=== PATIENT | female | born 1985 | race Caucasian/White ===

== ENCOUNTER → 2021-01-03 08:15 | Outpatient (CLI) | payer OTHER, SELFPAY ==
--- NOTE | ~2021-01-03 | CT_ITS ---
EXAMINATION: CT brain wo con DATE: 01/03/2021 08:41 INDICATION: Migraine headache without aura TECHNIQUE: Computed tomography (CT) of the head was performed without intravenous contrast. The mA wa s adjusted according to patient size. Iterative reconstruction technique was employed. Exam dose: 59 9.57 mGy-cm total exam DLP. COMPARISON: December 19, 2017 CT brain FINDINGS: Bilateral carotid siphon internal carotid artery calcifications are again noted. No intracranial mass lesion or hemorrhage or cerebrovascular accident is evident. No midline shift or mass effect. Normal ventricular size. Normal mahmood-white matter differentiation. No subdural or epidu ral hematoma. Orbital contents are unremarkable. No fracture or bone destruction of the cranial vault. There is a polyp or mucous retention cyst measuring approximately 15 mm dimension in the right maxill zoya sinus. Small anterior wall left maxillary sinus mucous retention cyst. Included paranasal sinuses and mastoid air cells are otherwise unremarkable. Prominent rightward deviation of the nasal septum and jared bullosa of the left middle nasal turbinate. IMPRESSION: Cerebral atherosclerosis Reviewed, dictated and finalized at [facility]. Reviewed, dictated and finalized at [facility]. [employer] [employer] IMPRESSION: Cerebral atherosclerosis
== END ==
PROVIDERS: PCP Family Medicine; Visit Provider Family Medicine
DX: G43.009 Migraine without aura, not intractable, without status migrainosus (principal); I67.2 Cerebral atherosclerosis
CPT/HCPCS: 70450

== ENCOUNTER → 2021-08-18 15:42 | Outpatient (CLI) | payer OTHER, SELFPAY ==
--- NOTE | ~2021-08-18 | CT_ITS ---
EXAMINATION: CT sinus wo con DATE: 08/18/2021 15:54 INDICATION: Chronic sinusitis TECHNIQUE: Computed tomography (CT) of the paranasal sinuses was performed without contrast. Iterativ e reconstruction technique was employed. Exam dose: 274.70 mGy-cm total exam DLP. COMPARISON: January 03, 2021 CT brain FINDINGS: There is prominent rightward deviation of the nasal septum. There is very prominent interlamellar cell of the left middle nasal turbinate and asymmetric soft tis mushtaq swelling of the left middle and inferior nasal turbinates compared to their counterparts on the r ight. There is mild soft tissue thickening of the left maxillary ostium and the left infundibulum. The left ethmoid bulla is opacified. The right ostiomeatal unit is patent. There is a chronic anterior right maxillary polyp or mucous retention cyst measuring up to approximat abigail 1.3 cm, unchanged since January 03, 2021. There is mild focal periosteal thickening of the left maxillary sinus and a small left maxillary sinu s fluid level. There is partial opacification of some anterior and mid left ethmoid air cells. There is moderate mucoperiosteal thickening of the left frontal sinus. There is mild mucoperiosteal thickening of the left sphenoid sinus. The mastoid air cells are normally developed and aerated. Middle and inner ear apparatus appear ruben l bilaterally. IMPRESSION: Prominent rightward deviation of nasal septum Prominent interlamellar cell of left middle nasal turbinate Asymmetric soft tissue swelling of left middle and inferior nasal turbinates Mild soft tissue thickening of left maxillary ostium and infundibulum Patent right ostiomeatal units Moderate mucoperiosteal thickening of left frontal sinus, mild soft tissue thickening of left sphenoi d sinus Approximately 1.3 cm polyp or mucous retention cyst of anterior right maxillary sinus, stable since F ebrubighorn 2020 Mild mucoperiosteal thickening and small fluid level of left maxillary sinus Partial opacification of left ethmoid air cells Reviewed, dictated and finalized at [facility]. Reviewed, dictated and finalized at [facility]. IMPRESSION: Prominent rightward deviation of nasal septum Prominent interlamellar cell of left middle nasal turbinate Asymmetric soft tissue swelling of left middle and inferior nasal turbinates Mild soft tissue thickening of left maxillary ostium and infundibulum Patent right ostiomeatal units Moderate mucoperiosteal thickening of left frontal sinus, mild soft tissue thic kening of left sphenoid sinus Approximately 1.3 cm polyp or mucous retention cyst of anterior right maxillary sinus, stable since January 03, 2021 Mild mucoperiosteal thickening and small fluid level of left maxillary sinus Partial opacification of left ethmoid air cells
== END ==
PROVIDERS: Visit Provider Otolaryngology
DX: J32.9 Chronic sinusitis, unspecified (principal); J34.2 Deviated nasal septum
CPT/HCPCS: 70486

== ENCOUNTER 2021-08-31 09:48 | Emergency (ER) | payer OTHER, SELFPAY ==
[2021-08-31 09:57] VITALS: BP 147/91; PULSE 71; RESP 16; TEMP 36.7; O2SAT 100
--- NOTE | 2021-08-31 11:13 | ED.GENADULT ---
HPI - General Adult General Chief complaint: Skin/Abscess/Foreign Body Stated complaint: rash Source: patient Mode of arrival: ambulatory Limitations: no limitations History of Present Illness HPI narrative: Patient is a 36-year-old female who presents to the [facility] via POV for evaluation of a rash that has been present for 1 day. Additionally, she reports rash to be located on hands, feet, and oral cavity. She states this rash is erythematous, blisterlike and sore . She also reports a different rash located on bilateral upper arms. This rash is pruritic and erythematous. Denies taking OTC meds for symptoms. Nothing improves or worsen symptoms. Patient does report exposure to pryb-livo-byl-mouth. 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 She is not vaccinated against Covid. Related Data Home Medications Medication Instructions Recorded Confirmed aspirin 81 mg tablet,delayed 81 mg PO DAILY 03/09/21 08/10/21 release loratadine 10 mg tablet 10 mg PO DAILY 03/09/21 08/10/21 Allergies Allergy/AdvReac Type Severity Reaction Status Date / Time iodine Allergy Unknown Unknown Verified 08/31/21 10:28 morphine Allergy Unknown Nausea and Verified 08/31/21 10:28 Vomiting shellfish derived Allergy Unknown Nausea and Verified 08/31/21 10:28 Vomiting SHELLFISH Allergy Severe SOB, Uncoded 08/31/21 10:28 SEVERE ITCHEY RASH Review of Systems Review of Systems: Denies recent/new changes in soaps, perfumes, lotions, detergents, and shampoos. Denies working with chemicals. Denies new or changes in medications/foods. Pertinent negatives fever, chills, sweats, change in appetite, malaise, poor p.o. intake, recent weight loss, change in appetite, myalgias, lymphadenopathy, LOC, dizziness, burning sensation, petechiae, swelling, streaking, warmth, lesions, easy bruising, lip/tongue/throat swelling, facial swelling, abdominal pain, nausea, vomiting, numbness, tingling, loss of sensation, cough, wheezing, chest pain, and heart palpitations/murmurs. PMFSH Past Medical History Medical History Anxiety disorder, unspecified BMI 36.0-36.9,adult BMI 37.0-37.9, adult BMI 38.0-38.9,adult BMI 39.0-39.9,adult Dysthymia Head ache Irritable bowel syndrome with diarrhea PMDD (premenstrual dysphoric disorder) Sleep apnea Vitamin D deficiency Surgical History Surgical History History of surgery Leg x4 Family History Family History Mother Diabetes mellitus Father No problems noted. 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 There is no relevant family history pertinent to the presenting complaint. Exam Narrative: GENERAL: Well-appearing, well-nourished, and in no acute distress. HEAD: Normocephalic, atraumatic. No facial swelling appreciated. EYES: PERRLA and EOMI. No evidence of erythema, swelling, or drainage. ENT: Nares clear, no rhinorrhea or epistaxis.Mucous membranes moist and pink. Uvula is midline without erythema and swelling. No evidence of obstruction, petechial rash, cobblestoning, lesions, swelling, exudates, peritonsillar abscess, tenting, or drooling. Breath odor and voice normal. NECK: Supple. No Lymphadenopathy or nuchal rigidity appreciated. CHEST: Bilateral lung grant are clear to auscultation. No respiratory distress.
== END 2021-08-31 11:37 | disposition home or self-care (01) ==
PROVIDERS: Emergency Provider Nurse Practitioner Family; PCP Family Medicine
DX: B08.4 Enteroviral vesicular stomatitis with exanthem (principal); L25.9 Unspecified contact dermatitis, unspecified cause; G47.30 Sleep apnea, unspecified; E55.9 Vitamin D deficiency, unspecified; Z79.82 Long term (current) use of aspirin
CPT/HCPCS: 99211; G0463

== ENCOUNTER 2021-09-22 07:59 | Outpatient (CLI) | payer OTHER, SELFPAY ==
--- NOTE | 2021-09-22 08:00 | ECG_ITS ---
Measurements Intervals [place] Rate: 65 P: 45 NM: 164 QRS: 17 QRSD: 101 T: 63 QT: 370 QTc: 386 Interpretive Statements SINUS RHYTHM DELAYED PRECORDIAL R/S TRANSITION BORDERLINE ECG Electronically Signed On 09-22-2021 8:57:47 CHURCH ORGANIST by Tank Gillis D.O.
[2021-09-22 09:35] LABS: Anion Gap 9 mmol/L (8-16); Blood Urea Nitrogen 17 mg/dL (7-17); Calcium 8.9 mg/dL (8.4-10.2); Carbon Dioxide 23 mmol/L (22-30); Chloride 107 mmol/L (98-107); Estimated Glomerular Filt Rate > 60; Glucose 85 mg/dL (65-110); Potassium 4.1 mmol/L (3.4-5.0); Sodium 139 mmol/L (137-145)
== END 2021-09-22 08:00 | disposition home or self-care (01) ==
PROVIDERS: Anesthesiology; PCP Family Medicine; Visit Provider Otolaryngology
DX: Z01.818 Encounter for other preprocedural examination (principal); I10 Essential (primary) hypertension
CPT/HCPCS: 36415; 80048; 93005

== ENCOUNTER 2021-09-23 00:47 | Day surgery (SDC) | payer OTHER, SELFPAY ==
[2021-09-20 16:05] VITALS: BMI 41.4
--- NOTE | 2021-09-20 16:09 | PC.NURSE ---
Report to the Outpatient Waiting Room, entrance under the green pavilion located off [facility], at time ___0800____ on date 09/23/21 . OR Time: ___1000 . - You and your visitor will be asked a series of questions to screen for COVID 19 for your protection. - A mask is required within the hospital. - Only one visitor is allowed at this time. Patient visitors will be guided where to wait when not with patient. Preoperative COVID Testing Requirements: No COVID Test needed if: (proof is required; if not received patient will have Rapid Test prior to entry) - Patient has received COVID Vaccine at least 14 days prior to procedure date or - Patient has positive COVID test result within last 90 days of surgery date. COVID Test needed if above criteria is not met If not COVID vaccinated a COVID test must be conducted within 72 hours of surgery and patient is asked to isolate self from time of testing until procedure. You will go to the [employer] [facility] for your COVID testing. The [employer] [facility] is located at the corner of [address] [facility]. You will only be called if COVID results are positive and your surgeon may reschedule your elective surgery date. Patients may have clear liquids (water, carbonated beverages, clear teas, apple juice) until 3 hours prior to surgery with a maximum of 20 ounces. - No food from midnight until time of surgery - Infants may have breast milk until 4 hours before surgery, infant formula 6 hours prior to surgery. - Children will be allowed to drink immediately following surgery. If applicable, please bring a bottle or sippy cup to assist with drinking. Juice, water, soda, and popsicles are readily available. For infants on formula, please bring formula the day of surgery. Pacifiers are allowed. Take the following medications with a SIP of water the morning of surgery: ____ALPRAZOLAM NEEDED Medications to discontinue per physician IBUPROFEN [address] ARREGUIN REGARDING ASPIRIN Date to take last dose Please no make-up, nail telugu, hairspray, perfume, deodorant, or body powder the day of surgery. No jewelry (including any body piercings) or valuables the day of surgery, leave them at home. Please take a shower or bath the night before, or the morning of, surgery with an antibacterial soap. Wear comfortable, loose fitting clothing. Children are encouraged to wear pajamas. - Jewelry must be removed prior to entering the operating room. Rings and piercings that are not removed may be cut off. - The hospital will not accept responsibility for valuables. - Please leave all valuables, including medications, at home the day of surgery. If you are going home after surgery, a licensed lumber driver must drive you home. - NO public transportation without another adult. - We recommend that an adult stay with you for 24 hours following discharge. - We also recommend that you do not drive, make important decision, drink alcoholic beverages, or take any drugs that were not prescribed by your health care provider for at least 24 hours after your discharge time. For Pediatric surgeries, we recommend two adults accompany the child home (only one inside the building at this time). Follow any additional instructions given to you from your surgeon. Telephone instructions given to __ANIKA and asked if any additional questions and then verbalized understanding. Patient advised to call surgeon office or pre surgery nurse liaison [phone] if any additional questions.
--- NOTE | 2021-09-22 09:17 | PM.IMHP ---
H&P: HPI History of Present Illness Date/Time: 09/22/21 09:17 Chief Complaint: nasal obstruction nasal congestion septal deviation inferior turbinate hypertrophy postnasal drip facial pressure facial pain chronic sinusitis acute sinusitis jared bullosa Narrative: patient presents for planned surgical procedures. No change in symptoms no change in medical history. Review of Systems Constitutional: Constitutional: Denies fatigue, Denies fever(s) and Denies lethargy Eyes: Eyes: Denies blurry vision and Denies change in vision ENT: Reports as per HPI Cardiovascular: Cardiovascular: Denies chest pain Respiratory: Respiratory: Denies cough Endocrine: Endocrine: Denies fatigue Hematologic/Lymphatic: Hematologic/Lymphatic: Denies easy bleeding, Denies easy bruising and Denies lymphadenopathy Allergic/Immunologic: Allergic/Immunologic: Denies seasonal rhinorrhea PMFSH Past Medical History Medical History Anxiety disorder, unspecified BMI 36.0-36.9,adult BMI 37.0-37.9, adult BMI 38.0-38.9,adult BMI 39.0-39.9,adult BMI 40.0-44.9, adult Dysthymia Head ache Irritable bowel syndrome with diarrhea PMDD (premenstrual dysphoric disorder) Sleep apnea Vitamin D deficiency Surgical History Surgical History History of surgery Leg x4 Family History Family History Mother Diabetes mellitus Father No problems noted. 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 Gender identity (if verbalized by the patient): Female Spiritual care concerns: No Meds Home Medications and Allergies Home Medications Medication Instructions Recorded Confirmed Type aspirin 81 mg tablet,delayed 81 mg PO DAILY 03/09/21 09/20/21 History release fluticasone propionate 50 2 spray INTRANASAL BID #16 ml 03/09/21 09/20/21 Rx mcg/actuation nasal spray,suspension loratadine 10 mg tablet 10 mg PO DAILY 03/09/21 09/20/21 History alprazolam 0.5 mg tablet 0.5 mg PO BID PRN #30 tablet 04/06/21 09/20/21 Rx hydrochlorothiazide 12.5 mg tablet 12.5 mg PO DAILY #30 tablet 05/03/21 09/20/21 Rx bupropion HCl 300 mg 24 hr tablet, 300 mg PO QAM #30 tablet 05/30/21 09/20/21 Rx extended release escitalopram oxalate 10 mg tablet 10 mg PO DAILY #30 tablet 07/25/21 09/20/21 Rx zonisamide 100 mg capsule See Rx Instructions .ROUTE 07/25/21 09/07/21 Rx .COMPLEX #30 cap Allergies Allergy/AdvReac Type Severity Reaction Status Date / Time iodine Allergy Unknown Unknown Verified 09/20/21 15:41 morphine Allergy Unknown Nausea and Verified 09/20/21 15:41 Vomiting shellfish derived Allergy Unknown Nausea and Verified 09/20/21 15:41 Vomiting SHELLFISH Allergy Severe SOB, Uncoded 09/20/21 15:41 SEVERE ITCHEY RASH Exam Const: General: cooperative, healthy appearing, comfortable, well developed and alert HENMT: Head: normal to inspection, normocephalic and atraumatic Ears: hearing grossly normal bilaterally, external ears normal, TM's normal bilaterally and EAC's normal General nose exam: Normal external nose present, Normal nares present and Other nasal findings present ( Turbinate hypertrophy septal deviation) Face and sinus: normal facial exam Mouth: Yes Normal oral and palatal mucosa present, Yes lip normal, Yes tongue normal, Yes oropharynx normal and Yes moist mucous membranes Teeth and gingiva: dentition normal and gingiva normal Throat: posterior oropharynx normal, tonsils normal and uvula midline Eyes: General: appea
[2021-09-23] VITALS (15 sets, daily range): BP systolic 130–155; BP diastolic 72–92; PULSE 70–81; RESP 14–20; TEMP 36.2–36.5; O2SAT 94–100; BMI 42.5
--- NOTE | 2021-09-23 07:03 | WPDHPUPDATE1 ---
History and Physical Update Update Date/Time: 09/23/21 07:03 History and Physical has been reviewed, including an updated exam of the patient. There are NO changes in the patient's condition. Risks, benefits, and alternatives have been discussed and questions answered. Patient agrees to proceed with procedure.
[2021-09-23] MEDS: LACTATED RINGERS 1,000 ML 30 ML IV CONT ×3 (09:13→15:21)
[2021-09-23] MEDS: ACETAMINOPHEN 500 MG TABLET 1000 MG PO (09:15)
--- NOTE | 2021-09-23 09:36 | WPDANESEPP ---
Anes - Eval Pre Procedure Procedure: Operation Date: 09/23/21 10:30 Proposed Procedures p Endoscopic Septoplasty - Steven Najera MD s Image Guided Right Anterior Ethmoidectomy, Left Anterior And Posterior Ethmoidectomy, Bilateral Maxillary Antrostomy, Left Sphenoidotomy, Left Frontal Sinusotomy, Bilateral Inferior Turbinectomy, Excision Of Left Christine Bullosa - Steven Najera MD Date/Time: 09/23/21 09:36 Surgeon: Reinaldo Preop Diagnosis: Chronic sinusitis Pre Op Diagnosis: Chronic Sinusitis Patient Data Age: 36 Gender: F Height: 1.65 m Weight: 115.8 kg Last Vital Signs Temp 36.5 C 09/23/21 09:25 Pulse 77 09/23/21 09:25 Resp 14 09/23/21 09:25 BP 130/92 H 09/23/21 09:25 Pulse Ox 98 09/23/21 09:25 Allergies Allergy/AdvReac Type Severity Reaction Status Date / Time iodine Allergy Unknown Unknown Verified 09/23/21 09:29 morphine Allergy Unknown Nausea and Verified 09/23/21 09:29 Vomiting shellfish derived Allergy Unknown Nausea and Verified 09/23/21 09:29 Vomiting SHELLFISH Allergy Severe SOB, Uncoded 09/23/21 09:29 SEVERE ITCHEY RASH Home Medications Medication Instructions Recorded Confirmed Type aspirin 81 mg tablet,delayed 81 mg PO DAILY 03/09/21 09/20/21 History release fluticasone propionate 50 2 spray INTRANASAL BID #16 ml 03/09/21 09/20/21 Rx mcg/actuation nasal spray,suspension loratadine 10 mg tablet 10 mg PO DAILY 03/09/21 09/20/21 History alprazolam 0.5 mg tablet 0.5 mg PO BID PRN #30 tablet 04/06/21 09/20/21 Rx hydrochlorothiazide 12.5 mg tablet 12.5 mg PO DAILY #30 tablet 05/03/21 09/20/21 Rx bupropion HCl 300 mg 24 hr tablet, 300 mg PO QAM #30 tablet 05/30/21 09/20/21 Rx extended release escitalopram oxalate 10 mg tablet 10 mg PO DAILY #30 tablet 07/25/21 09/20/21 Rx zonisamide 100 mg capsule See Rx Instructions .ROUTE 07/25/21 09/07/21 Rx .COMPLEX #30 cap HCG: negative Patient hx anesthesia problems: none Family hx anesthesia problems: none Results Review: All pre-operative results and documents have been reviewed as part of the pre-operative evaluation. [facility] Past Medical History Medical History Anxiety disorder, unspecified BMI 36.0-36.9,adult BMI 37.0-37.9, adult BMI 38.0-38.9,adult BMI 39.0-39.9,adult BMI 40.0-44.9, adult Dysthymia Head ache Irritable bowel syndrome with diarrhea PMDD (premenstrual dysphoric disorder) Sleep apnea Vitamin D deficiency Surgical History Surgical History History of surgery Leg x4 Family History Family History Mother Diabetes mellitus Father No problems noted. 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
--- NOTE | 2021-09-23 09:43 | WPDANESEFPP ---
Anes - Eval Final PreProcedure Day of Procedure 09/23/21 09:43 Patient weight: morbidly obese Heart: regular rate and rhythm Lungs: clear to auscultation Airway: Mallampati scale class II Neurological: alert and oriented Last oral intake: >/= 8 hours ASA classification: III Emergent: no Anesthetic plan: proceed Anesthesia type and monitoring: general ETT and standard monitoring Results Review: All pre-operative results and documents have been reviewed as part of the pre-operative evaluation. Informed Consent: The patient's anesthetic plan and its attendant risks and benefits were discussed with the patient/family/POA. Questions were solicited and answers provided to the satisfaction of the patient/family/POA.
[2021-09-23] MEDS: ceFAZolin 2 GM/D5W 50 ML 2 GM/50 ML BAG IVPB (09:48)
[2021-09-23] MEDS: LIDO 1%/EPINEPHRINE 1:100,000 50 ML VIAL 10 ML INFILTRATE (10:12)
[2021-09-23] MEDS: OXYMETAZOLINE HCL 0.05% NAS 15 ML BTL (*BKC) 1 SPRAY NASAL (10:12)
--- NOTE | 2021-09-23 12:27 | W.PM.PROC2 ---
Procedure Note - Detailed Date of Procedure 09/23/21 Pre-op Diagnosis Chronic Sinusitis R ight, jared bullosa, nasal obstruction, septal deviation,, inferior turbinate hypertrophy, Post-op Diagnosis same Procedure Performed 1. Bilateral image guided endoscopic maxillary antrostomies 2. Bilateral image guided endoscopic anterior ethmoidectomies 3. Image guided endoscopic left posterior ethmoidectomy 5. Image guided endoscopic left-sided sphenoidotomy 6. Left-sided image guided endoscopic frontal sinusotomy 7. Left-sided image guided resection of jared bullosa 8. Endoscopic assisted septoplasty 9. Endoscopic bilateral inferior turbinate submucosal resection with outfracture. Surgeon Steven Najera MD Emergency Medicine None Indications See above Findings Septum very deviated to the right corrected turbinates hypertrophied well reduced following the procedure polypoid tissue and all the diseased aforementioned sinuses no tacos polyps no tacos purulence Inez should enormous resected providing a much better airway and drainage pathway. Description of Procedure Patient correctly identified consent verified in the preoperative holding area. Patient brought to the operating time Sineff formed. Anesthesia induced endotracheal tube secured the patient's airway taped left lower lip. Image guidance initiated. Patient prepped and draped for the aforementioned procedures. Second time-out performed. Afrin-soaked pledgets placed bilaterally allowed to sit for 5 minutes removed. 0 degree scope utilized. Left-sided resection of jared occurred after injecting local into the jared bullosa for several allowing to sit for several minutes was 1 cc of 1% lidocaine with 1 100,000 parts epinephrine jared resected with microdebrider quad cut image guided as well as straight through cut. Maxillary antrostomy on the left and right performed with straight through cut backbiter double ball tip probe and microdebrider ensured to connect to the natural os using 70 degree scope. Left maxillary antrostomy was performed before septoplasty right after. Ethmoidectomy anteriorly performed bilaterally using combination of [place] micro debrider and image guided suction. Left performed for septoplasty right after. Left posterior ethmoidectomy performed with Kerrison microdebrider sphenoidotomy performed with Kerr[place] micro debrider all the aforementioned cells were widely opened great care was taken not to injure the skull base or orbit. Partitions were removed all the way from the skull base to orbit to septum on the left as we did a total ethmoidectomy. 70 degree scope utilized to perform frontal sinusotomy great care was taken to gently open the frontal sinus outflow tract given its very narrowed opening. [place] incision made on the septum following injection of 8 cc 1% local with 1 100,000 parts epinephrine left nasal septal flap dissected using 7 Ukrainian suction and caudal sided septum crossed over right-sided flap elevated deviated septum removed combination of Christophe Christian forceps Travis forceps and osteotome. Septum much straighter no perforations noted which were bilateral and touching. Again the right-sided sinus surgery previously described was performed after the septoplasty the septoplasty was very deviated to the right. Inferior turbinates entered anteriorly following application of 1 cc of 1% lidocaine 1 100,000 parts epinephrine. This was performed bilaterally. They were debrided the submucosal plane using microdebrider with 2 mm turbinate blade and outfractured using [place] elevator. The turbinates and inferior turbinates bilaterally had very very significant mulberry tips of which were bovied with suction Bovie electrocautery at a setting of 15. Bilateral nasal passages suction to the posterior choana. Hemostasis was excellent. Left-sided Yousif incision closed with 4 interrupted 5 0 fast gut sutures. Anderson splints trimmed placed bilaterally closed with a mattress 3-0 n
[2021-09-23] MEDS: fentaNYL CITRATE INJ (*CRX) 100 MCG/2 ML VIAL 25 MCG IV PUSH ×4 (12:44→13:02)
[2021-09-23] MEDS: oxyCODONE HCL (*CRX) 5 MG TAB IR PO (13:45)
[2021-09-23] MEDS: ONDANSETRON INJ 4 MG/2 ML VIAL IV PUSH (15:34)
== END 2021-09-23 16:15 | disposition home or self-care (01) ==
PROVIDERS: PCP Family Medicine; Visit Provider Otolaryngology
PROC: (CPT 30520; principal; 2021-09-23 10:30)
PROC: (CPT 31256; 2021-09-23 10:30)
DX: R09.81 Nasal congestion (principal); J34.89 Other specified disorders of nose and nasal sinuses; J32.9 Chronic sinusitis, unspecified; G43.909 Migraine, unspecified, not intractable, without status migrainosus; J34.3 Hypertrophy of nasal turbinates; J34.2 Deviated nasal septum; R09.82 Postnasal drip; R44.8 Other symptoms and signs involving general sensations and perceptions; Z79.82 Long term (current) use of aspirin
CPT/HCPCS: 31256; 61782; 31254; 31287; 31276; 30140; 36415; 80048; 93005; A9270; J0330; J0690; J1100; J1170; J1200; J2250; J2405; J2704; J3010; J7120

== ENCOUNTER → 2022-02-10 09:27 | Outpatient (CLI) | payer OTHER, SELFPAY ==
--- NOTE | ~2022-02-10 | XR_ITS ---
XR shoulder RT min 2V DATE: 02/10/2022 09:49 INDICATION: Right shoulder pain TECHNIQUE: 5 views COMPARISON: None FINDINGS: No fracture or dislocation, periosteal reaction or bone destruction or abnormal soft tissue calcification is detected. IMPRESSION: Negative Reviewed, dictated and finalized at location A. IMPRESSION: Negative
== END ==
PROVIDERS: PCP Family Medicine; Visit Provider Nurse Practitioner Family
DX: M25.511 Pain in right shoulder (principal)
CPT/HCPCS: 73030

== ENCOUNTER 2023-01-04 07:49 | Outpatient (CLI) | payer OTHER, SELFPAY ==
--- NOTE | ~2023-01-04 | NM_ITS ---
EXAMINATION: NM bone 3 phase DATE: 01/04/2023 13:29 INDICATION: Right lower leg pain TECHNIQUE: 24.2 mCi Tc-99m HDP by intravenous route. Scintigrams of the bilateral lower legs were ob tained in angiographic, blood pool, and delayed phases. COMPARISON: Radiographs dated 08/06/2019 FINDINGS: Normal and symmetric distribution of activity on the angiographic phase images. There is accumulation of uptake along the medial side of the junction of the mid to distal thirds of the right tibia on th e immediate blood pool image with progressive accumulation in the bone at this location on the delaye d images. More subtle mild uptake at the mid right fibular diaphysis. IMPRESSION: 1. Mild increased uptake at the proximal to mid right fibular diaphysis corresponding to an old heal ed fracture on the prior radiographs. 2. Moderate uptake at the mid to distal right tibial diaphysis also in the region of an old healed fr acture but with significantly greater degree of bone uptake than the healing fibular fracture. There is nonspecific but could be related to continued remodeling. No abnormal increased uptake on the figueroa ographic phase imaging to suggest acute inflammatory process but would consider correlation with more current radiographs. Reviewed, dictated and finalized at location A. D [place] IMPRESSION: 1. Mild increased uptake at the proximal to mid right fibular diaphysis corres ponding to an old healed fracture on the prior radiographs. 2. Moderate uptake at the mid to distal right tibial diaphysis also in the jordyn on of an old healed fracture but with significantly greater degree of bone upta ke than the healing fibular fracture. There is nonspecific but could be related to continued remodeling. No abnormal increased uptake on the angiographic phas e imaging to suggest acute inflammatory process but would consider correlation with more current radiographs.
== END 2023-01-04 07:50 | disposition home or self-care (01) ==
PROVIDERS: PCP Family Medicine; Visit Provider Orthopaedic Surgery
DX: M79.661 Pain in right lower leg (principal); Z87.81 Personal history of (healed) traumatic fracture
CPT/HCPCS: 78315; A9503

== ENCOUNTER 2023-02-01 08:37 | Outpatient (CLI) | payer OTHER, SELFPAY ==
--- NOTE | 2023-02-23 17:25 | WPDHOMESLEEP ---
Sleep Study - Home Unattended Date of Study: 02/01/23 Ordering Provider: Merlin Stephens MD Interpreting Provider: Caroline Almeida, DO Home Sleep Study Type: Watch PAT Height: 1.65 m Weight: 127.006 kg Body Mass Index: 46.5 Neck Circumference (inches): 14.75 [place]: 16 Reason for Sleep Study Snoring, daytime hypersomnia Sleep History The patient is a 38-year-old female with anxiety, depression, hypertension, migraines, premenstrual dysphoric disorder and irritable bowel syndrome that had a sleep study ordered by her primary care for evaluation of sleep apnea. The patient rarely awakens from sleep short of breath. She denies awakening at night with heartburn, belching or cough. She frequently snores and is frequently loud enough that others complain. She constantly has trouble sleeping when she has a cold. She rarely wakes up gasping for air throughout the night. She occasionally has breathing problems at night observed by herself or others. She occasionally sweats excessively at night. She rarely has heart palpitations or irregular heartbeats during the night. She occasionally falls asleep during the day but never while driving. She denies sleep paralysis and cataplexy. She occasionally has trouble at school or work due to sleepiness. She rarely experiences vivid dreamlike scenes upon awakening or falling asleep. She denies feeling afraid of going to sleep. She rarely has nightmares and rarely remembers her dreams. She occasionally has thoughts racing through her mind. She occasionally feels sad or depressed. She frequently has anxiety. She occasionally has muscular tension. She occasionally notices parts of her body jerk. She occasionally kicks during the night. She denies having crawling and aching feelings in her legs but occasionally has leg pain during the night. She frequently grinds her teeth during sleep and occasionally awakens with morning jaw pain. She is occasionally bothered by pain during the day but rarely awakened by pain during the night. She rarely wakes up feeling stiff in the morning. She occasionally wakes up with sore or achy muscles. She rarely wakes up with pain in the neck, spine or other joints. She goes to bed at 9:00 p.m. on weekdays and at 10:00 p.m. on the weekends. It takes her 10 minutes to fall asleep. she wakes up twice throughout the night to urinate and the amount of time it takes for her to fall back asleep is variable. She wakes up between 6-7 a.m. on weekdays and between 7-8 a.m. on the weekends. She typically gets 8-10 hours of sleep per day. She will stay in bed for 10-30 minutes after waking up in the morning. She currently lives with her and 2 children. She does not consume any caffeinated beverages within 2 hours of bedtime. She does not engage in physical exercise before bedtime. She will watch television before falling asleep. She denies taking naps in the afternoon or the evening. She consumes 1 caffeinated beverage per day. She consumes 2 alcoholic beverages per month. She denies tobacco and recreational drug use. [facility] Past Medical History Medical History Abnormal Pap smear of cervix LGSIL PER PT BUT IS UNSURE, 08/20/2017 ascus -hpv Anxiety Anxiety disorder, unspecified BMI 36.0-36.9,adult BMI 37.0-37.9, adult BMI 38.0-38.9,adult BMI 39.0-39.9,adult BMI 40.0-44.9, adult Depression Dysthymia Head ache Irritable bowel syndrome with diarrhea PMDD (premenstrual dysphoric disorder) Sleep apnea Vitamin D deficiency Surgical History Surgical History History of 01/21/13 primary c/s--failure to progress, intolerance to labor 10/20/14 rpt c/s w/tubal ligation History of dilation and curettage 05/23/18 hscope d&c/novasure ablation--menometrorrhagia, dysmenorrhea History of endometrial ablation 05/23/18 hscope d&c/nova
[2023-02-23 17:32] VITALS: BMI 46.5
== END 2023-02-02 10:08 | disposition home or self-care (01) ==
LOC: ANHCSM 08:38
PROVIDERS: PCP Family Medicine; Visit Provider Family Medicine
DX: G47.9 Sleep disorder, unspecified (principal); G47.10 Hypersomnia, unspecified
CPT/HCPCS: 95800

== ENCOUNTER 2023-03-29 08:18 | Outpatient (CLI) | payer OTHER, SELFPAY ==
--- NOTE | 2023-04-23 08:49 | WPDSLEEPSTUD ---
Sleep Study Date of Study: 03/29/23 Ordering Provider: Merlin Stephens MD Interpreting Physician: Kerrie Anaya MD Sleep Study Type: Polysomnogram Height: 1.65 m Weight: 127 kg Body Mass Index: 46.5 Neck Circumference (inches): 13.5 [place]: 16 Reason for Sleep Study Hypersomnolence 02/01/2023 - home sleep test showing AHI 3.1 and desaturaiton to 89%; concerns for sleep disordered breathing persists and she presents for a polysomnogram Sleep History Liliana Doshi is a 38-year-old female with anxiety, depression, hypertension, migraines, premenstrual dysphoric disorder and irritable bowel syndrome who had a home sleep test 02/01/2023 showing an ?AHI of 3.1 with desaturation down to 89%. Concerns for sleep disordered breathing persist, so she is having a polysomnogram in the sleep alb. The patient rarely awakens from sleep short of breath.? She denies awakening at night with heartburn, belching or cough.? She frequently snores and is frequently loud enough that others complain.? She constantly has trouble sleeping when she has a cold.? She rarely wakes up gasping for air throughout the night.? She occasionally has breathing problems at night observed by herself or others.? She occasionally sweats excessively at night.? She rarely has heart palpitations or irregular heartbeats during the night.? She occasionally falls asleep during the day but never while driving.? She denies sleep paralysis and cataplexy.? She occasionally has trouble at school or work due to sleepiness.? She rarely experiences vivid dreamlike scenes upon awakening or falling asleep.? She denies feeling afraid of going to sleep.? She rarely has nightmares and rarely remembers her dreams.? She occasionally has thoughts racing through her mind.? She occasionally feels sad or depressed.? She frequently has anxiety.? She occasionally has muscular tension.? She occasionally notices parts of her body jerk.? She occasionally kicks during the night.? She denies having crawling and aching feelings in her legs but occasionally has leg pain during the night.? She frequently grinds her teeth during sleep and occasionally awakens with morning jaw pain.? She is occasionally bothered by pain during the day but rarely awakened by pain during the night.? She rarely wakes up feeling stiff in the morning.? She occasionally wakes up with sore or achy muscles.? She rarely wakes up with pain in the neck, spine or other joints.? She goes to bed at 9:00 p.m. on weekdays and at 10:00 p.m. on the weekends.? It takes her 10 minutes to fall asleep. she wakes up twice throughout the night to urinate and the amount of time it takes for her to fall back asleep is variable.? She wakes up between 6-7 a.m. on weekdays and between 7-8 a.m. on the weekends.? She typically gets 8-10 hours of sleep per day.? She will stay in bed for 10-30 minutes after waking up in the morning.? She currently lives with her and 2 children.? She does not consume any caffeinated beverages within 2 hours of bedtime.? She does not engage in physical exercise before bedtime.? She will watch television before falling asleep.? She denies taking naps in the afternoon or the evening.? Habits: She consumes 1 caffeinated beverage per day.? She consumes 2 alcoholic beverages per month.? She denies tobacco and recreational drug use. [facility] Past Medical History Medical History Abnormal Pap smear of cervix LGSIL PER PT BUT IS UNSURE, 08/20/2017 ascus -hpv Anxiety Anxiety disorder, unspecified BMI 36.0-36.9,adult BMI 37.0-37.9, adult BMI 38.0-38.9,adult BMI 39.0-39.9,adult BMI 40.0-44.9, adult BMI greater than 40 Depression Dysthymia Head ache Irritable bowel syndrome with diarrhea PMDD (premenstrual dysphoric disorder) Sleep apnea Vitamin D deficiency Surgical History Surgical History History of 01/21/13 primary c/s--failure
[2023-04-23 09:25] VITALS: BMI 46.5
== END 2023-03-30 07:25 | disposition home or self-care (01) ==
LOC: ANHCSM 08:20
PROVIDERS: PCP Family Medicine; Visit Provider Family Medicine
DX: G47.9 Sleep disorder, unspecified (principal)
CPT/HCPCS: 95810

== ENCOUNTER 2023-10-06 08:25 | Emergency (ER) | payer OTHER, SELFPAY ==
--- NOTE | 2023-10-06 08:33 | ED.URI ---
HPI - URI/Sore Throat General Chief Complaint: Upper Respiratory Infection Stated Complaint: Sinus Problems and Earache Time Seen by Provider: 10/06/23 08:51 Source: patient and RN notes reviewed Mode of arrival: ambulatory Limitations: no limitations History of Present Illness HPI Narrative: 38-year-old female presents concern for bilateral ear pain that started last night. Reports she has been having sinus congestion since Sunday. She reports she has had an ear infection in the past. She reports she has been taking qate-eic-lrchylj cold medications without relief MD elicited complaint: nasal congestion and other (Ear pain) Related Data Home Medications Medication Instructions Recorded Confirmed aspirin 81 mg tablet,delayed 81 mg PO DAILY 03/09/21 05/21/23 release (Adult Aspirin Regimen) Allergies Allergy/AdvReac Type Severity Reaction Status Date / Time iodine Allergy Unknown Unknown Verified 05/21/23 13:24 morphine Allergy Unknown Nausea and Verified 05/21/23 13:24 Vomiting shellfish derived Allergy Unknown Nausea and Verified 05/21/23 13:24 Vomiting Review of Systems Review of Systems: CONSTITUTIONAL: Denies malaise, chills, sweats, or fever. EYES: Denies visual changes, redness, or discharge. ENT: Reports rhinorrhea, congestion, otalgia CARDIOVASCULAR: Denies chest pain, palpitations, or edema. RESPIRATORY: Denies cough. Denies dyspnea. GASTROINTESTINAL: Denies abdominal pain, nausea, vomiting, diarrhea SKIN: Denies rash or itching. MUSCULOSKELETAL: Denies myalgia. NEUROLOGIC: Denies headache. All systems reviewed & are unremarkable except as noted in HPI and below PMFSH Past Medical History Medical History Abnormal Pap smear of cervix LGSIL PER PT BUT IS UNSURE, 08/20/2017 ascus -hpv Anxiety Anxiety disorder, unspecified BMI 36.0-36.9,adult BMI 37.0-37.9, adult BMI 38.0-38.9,adult BMI 39.0-39.9,adult BMI 40.0-44.9, adult BMI greater than 40 Depression Dysthymia Head ache Irritable bowel syndrome with diarrhea PMDD (premenstrual dysphoric disorder) Sleep apnea Vitamin D deficiency Surgical History Surgical History History of 03/12/13 primary c/s--failure to progress, intolerance to labor 10/20/14 rpt c/s w/tubal ligation History of dilation and curettage 05/23/18 hscope d&c/novasure ablation--menometrorrhagia, dysmenorrhea History of endometrial ablation 05/23/18 hscope d&c/novasure ablation--menometrorrhagia, dysmenorrhea History of nasal surgery History of orthopedic surgery 2001 rt leg History of tonsillectomy (04/03/18) History of tubal ligation (10/20/14) Family History Family History Mother Diabetes mellitus Father No problems noted. Sibling Bipolar 1 disorder Grandparent Diabetes mellitus maternal grandmother maternal grandfather Other Hypertension Social History Social History Smoking status: Never smoker Second hand tobacco smoke exposure: Yes Alcohol intake: current Drinks per week: 1 Substance use: never Substance use type: does not use Lack of Transportation: No Lack of Food: Never True Current Housing: I Have Housing Concerned About Future Housing: No Difficulty Paying Gas/Electric Bills: No Difficulty Paying for Meds: No Currently Unemployed: No Education: Bachelor's Degree Difficulty w/ Childcare or Family Care: No Living arrangements: with family Additional living arrangements comments: Occupation/Education: occupation 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
[2023-10-06 08:37] VITALS: BP 128/80; PULSE 84; RESP 18; TEMP 36.4; O2SAT 100
== END 2023-10-06 09:10 | disposition home or self-care (01) ==
PROVIDERS: Emergency Provider Nurse Practitioner; PCP Family Medicine
DX: H66.90 Otitis media, unspecified, unspecified ear (principal)
CPT/HCPCS: 99213; G0463

== ENCOUNTER 2024-05-05 08:45 | Emergency (ER) | payer OTHER, SELFPAY ==
[2024-05-05 08:55] VITALS: BP 140/83; PULSE 73; RESP 16; TEMP 37.3; O2SAT 99
--- NOTE | 2024-05-05 09:16 | ED.URI ---
HPI - URI/Sore Throat General Chief Complaint: Upper Respiratory Infection Stated Complaint: Sinus Infection Time Seen by Provider: 05/05/24 09:08 Source: patient and RN notes reviewed Mode of arrival: ambulatory Limitations: no limitations History of Present Illness HPI Narrative: Patient presents today with a 3 day history of postnasal drip, sinus pressure, sore throat, with development of cough today. She does have history of seasonal allergies and believes this may be the cause of her symptoms but wanted to come in for evaluation. She has been rinsing her sinuses with a bottle, she has also tried DayQuil, Mucinex, and Zicam. She also takes an antihistamine daily. Related Data Allergies Allergy/AdvReac Type Severity Reaction Status Date / Time iodine Allergy Unknown Unknown Verified 10/12/23 10:18 morphine Allergy Unknown Nausea and Verified 10/12/23 10:18 Vomiting shellfish derived Allergy Unknown Nausea and Verified 10/12/23 10:18 Vomiting Review of Systems Review of Systems: CONSTITUTIONAL: Denies body aches, fever, chills, or sweats. EYES: Denies visual changes, redness, or discharge. ENT: Denies rhinorrhea, or otalgia.+ postnasal drip, sinus pressure congestion, sore throat CARDIOVASCULAR: Denies chest pain, palpitations, or edema. RESPIRATORY: Denies dyspnea.+ cough GASTROINTESTINAL: Denies abdominal pain, nausea, vomiting, or diarrhea. GENITOURINARY: Denies dysuria or hematuria. SKIN: Denies rash, itching, or wounds. MUSCULOSKELETAL: Denies back pain, joint pain, or myalgia. NEUROLOGIC: Denies headache, numbness, tingling, or weakness. PSYCH: Denies depression or anxiety. [facility] Past Medical History Medical History Abnormal Pap smear of cervix LGSIL PER PT BUT IS UNSURE, 08/20/2017 ascus -hpv Anxiety Anxiety disorder, unspecified BMI 36.0-36.9,adult BMI 37.0-37.9, adult BMI 38.0-38.9,adult BMI 39.0-39.9,adult BMI 40.0-44.9, adult BMI greater than 40 Depression Dysthymia Head ache Irritable bowel syndrome with diarrhea PMDD (premenstrual dysphoric disorder) Sleep apnea Vitamin D deficiency Surgical History Surgical History History of 01/21/13 primary c/s--failure to progress, intolerance to labor 10/20/14 rpt c/s w/tubal ligation History of dilation and curettage 05/23/18 hscope d&c/novasure ablation--menometrorrhagia, dysmenorrhea History of endometrial ablation 05/23/18 hscope d&c/novasure ablation--menometrorrhagia, dysmenorrhea History of nasal surgery History of orthopedic surgery 2001 rt leg History of tonsillectomy (04/03/18) History of tubal ligation (10/20/14) Family History Family History Mother Diabetes mellitus Father No problems noted. Sibling Bipolar 1 disorder Grandparent Diabetes mellitus maternal grandmother maternal grandfather Other Hypertension Social History Social History Smoking status: Never smoker Second hand tobacco smoke exposure: Yes Alcohol intake: current Drinks per week: 1 Substance use: never Substance use type: does not use Lack of Transportation: No Lack of Food: Never True Current Housing: I Have Housing Concerned About Future Housing: No Difficulty Paying Gas/Electric Bills: No Difficulty Paying for Meds: No Currently Unemployed: No Education: Bachelor's Degree Difficulty w/ Childcare or Family Care: No Living arrangements: with family Additional living arrangements comments: Occupation/Education: occupation 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
== END 2024-05-05 09:27 | disposition home or self-care (01) ==
PROVIDERS: Emergency Provider Nurse Practitioner; PCP Family Medicine
DX: J30.2 Other seasonal allergic rhinitis (principal); F41.9 Anxiety disorder, unspecified; F32.A Depression, unspecified
CPT/HCPCS: 99211; G0463

== ENCOUNTER 2025-03-18 13:23 | Outpatient (CLI) | payer OTHER, SELFPAY ==
--- NOTE | ~2025-03-18 | US_ITS ---
EXAM: ABDOMEN ULTRASOUND HISTORY: R10.11 - Right upper quadrant pain COMPARISON: None FINDINGS: LIVER: The liver is increased in echogenicity and size measuring 19cm in longitudinal dimension. The portal vein is patent, demonstrating hepatopedal flow. The contour of the liver surface is smooth. GALLBLADDER: No stones are identified within the gallbladder. No gallbladder wall thickening or pericholecystic fluid. BILE DUCTS: Common bile duct measures 4mm. PANCREAS: Limited evaluation of the pancreas secondary to overlying bowel gas SPLEEN: The spleen is unremarkable in echogenicity and size measuring 9.3cm in longitudinal dimension . RIGHT KIDNEY: 10.9 cm in length. No renal calculi. Mild right-sided hydronephrosis is present. LEFT KIDNEY: 10cm in length. No hydronephrosis or renal calculi. VASCULATURE : The abdominal aorta is nonaneurysmal. The IVC is patent. IMPRESSION: Mild right-sided hydronephrosis. Hepatomegaly. Evaluation of the pancreas is limited by overlying bowel gas. Otherwise, unremarkable sonographic evaluation of the abdomen, as detailed above. Reviewed, dictated and finalized at location A. IMPRESSION: Mild right-sided hydronephrosis. Hepatomegaly. Evaluation of the pancreas is limited by overlying bowel gas. Otherwise, unremarkable sonographic evaluation of the abdomen, as detailed [place]
== END 2025-03-18 13:24 | disposition home or self-care (01) ==
LOC: GOSHIMG 13:23
PROVIDERS: PCP Family Medicine; Visit Provider Physician Assistant Medical
DX: R10.11 Right upper quadrant pain (principal); R16.0 Hepatomegaly, not elsewhere classified
CPT/HCPCS: 76700

== ENCOUNTER 2025-06-08 00:13 | Day surgery (SDC) | payer OTHER, SELFPAY ==
[2025-05-26 08:48] VITALS: BMI 50.8
--- OUTSIDE RECORDS SUMMARY | 2025-06-08 00:16 | XMS_ITS | Continuity of Care Document ---
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 Name Role Phone Malcolm Bustamante Unavailable Unavailable Procedures Procedure Date Therapeutic Activities Therapeutic Exercise Neuromuscular Re-Ed Hot or Cold Pack Therapeutic Activities Neuromuscular Re-Ed Therapeutic Exercise Manual Therapy Hot or Cold Pack Therapeutic Activities Neuromuscular Re-Ed Therapeutic Exercise PT Evaluation Moderate Complexity Therapeutic Activities Neuromuscular Re-Ed Therapeutic Exercise Manual Therapy Hot or Cold Pack Therapeutic Exercise Therapeutic Activities Neuromuscular Re-Ed Therapeutic Exercise Therapeutic Activities Neuromuscular Re-Ed Manual Therapy Therapeutic Exercise Therapeutic Activities Neuromuscular Re-Ed Manual Therapy Therapeutic Exercise Therapeutic Activities Neuromuscular Re-Ed Manual Therapy Hot or Cold Pack Therapeutic Exercise Therapeutic Activities Hot or Cold Pack PT Evaluation Moderate Complexity Therapeutic Exercise Neuromuscular Re-Ed Advance Directives Directive Yes / No Effective Date File Name No Information Encounters Encounter Description Practice Location Reason(s) For Visit Diagnoses Date Provider Providers Copied on Encounter [address], [id number], tel:[phone] [place] No Information [address] [address] [facility] ([place], [place]), [address], [place], [place], [facility], . tel:[phone], [place], [place], [id number], tel:[phone] [place] No Information 4 Muehl Malcolm. [address] [place] [address], [address], [place] [address], . tel:[phone] Referring Provider: Jai Juarez [address], [place], [address]. tel:[phone], [place], [place], [id number], tel:[phone] [place] No Information 4 Muehl Malcolm. [address] [place] [address], [address], [place], [place], [facility], . tel:[phone] Referring Provider: Jai Juarez [address], [place], [address]. tel:[phone], [place], [place], [id number], tel:[phone] [place] No Information 4 Chad Sabillon. [address] [place] [address], [address], [place], [place], [facility], . tel:[phone] Referring Provider: Lucy Gallardo[address], [place], [address]. tel:[phone] [facility], [place], [place], [id number], [place] tel:[phone] [place] No Information [address] [facility] ([place], [place]), [address], [place], [place], [facility], [place]. tel:[phone] Referring Provider: Jai Juarez, [address] [address], [place], [address]. tel:[phone] [facility], [place], [place], [id number], [place] tel:[phone] [place] Pain in left kneeMuscle weakness (generalized)Ot her specified disorders of muscleUnspecifi ed abnormalities of gait and mobility Apr-0 8-[address] [address] [facility] ([place], [place]), [address], [place], [place], [facility], [place]. tel:[phone] [facility], [place], [place], [id number], [place] tel:[phone] [place] Pain in left kneeMuscle weakness (generalized)Ot her specified disorders of muscleUnspecifi ed abnormalities of gait and mobility Mar-2 8-201 9 Threlkeld Tonja. . [facility], [place], [place], [id number], [place] tel:[phone] [place] Pain in left kneeMuscle weakness (generalized)Ot her specified disorders of muscleUnspecifi ed abnormalities of gait and mobility Mar-2 6-[address] [address] [facility] ([place], [place]), [address], [place], [address], [place]. tel:[phone] [facility], [place], [place], [id number], [place] tel:[phone] [place] Pain in left kneeMuscle weakness (generalized)Ot her specified disorders of muscleUnspecifi ed abnormalities of gait and mobility Mar-2 1-[address] [facility] ([place], [place] [address], [place], [facility], . tel:[phone] [facility] [facility] [address], [place], [place], [id number], tel:[phone] [place] Pain in left kneeMuscle weakness (generalized)Ot her specified disorders of muscleUnspecifi ed abnormalities of gait and mobility 9 Yefri Tonja. . [facility] [facility] [address], [place], [place], [id number], tel:[phone] [place] Pain in left kneeMuscle weakness (generalized)Ot her specified disorders of muscleUnspecifi ed abnormalities of gait and mobility [address] [address] [facility] ([place], [place]), [address], [place], [place], [facility], . tel:[phone] Family History Family Member Type Diagnosis Age At Onset No Information Payers Payer name Insurance type Covered libertarian ID Magdaleno wood(s) [facility] CI [id number] Social History Type Description Quantity Date Captured Comments Sex Female Smoking Status No Information Chief Complaint And Reason For Visit No Information Reason For Referral Reason For Referral No Information History Of Present Illness Encounter Date Complaint History Of Prese nt Illness No Information Functional Status Date Functional Assessmen t No Information Instructions Date Instruction Additional Infor mation No Information Assessments Type Assessment Date No Information Patient Care Teams Name Effective Dates (start - stop) Status Members No Information
--- OUTSIDE RECORDS SUMMARY | 2025-06-08 00:16 | XMS_ITS | Clinical Summary ---
Author Organization [facility] Address [facility] [place] [address] Care Team Providers Care Director Of In Service Education Name Role Phone Tiffanie Rosa PA-C Primary Care Provider [phone] Allergies Active Allergy Reactions Criticality Noted Date Comments Morphine Nausea and Vomiting 07/06/2022 Shellfish Allergy Anaphylaxis,Hives,It davon,Shortness of Breath,Swelling High 07/06/2022 Medications ALPRAZolam (XANAX) 0.5 MG tablet Take 1 tablet (0.5 mg total) by mouth 2 (two) times daily as needed. FOR ANXIETY 05/26/20 22 Active aspirin EC (ASPIRIN EC) 81 MG tablet Take 1 tablet (81 mg total) by mouth every morning. Active buPROPion XL (WELLBUTRIN XL) 300 MG 24 hr tablet Take 1 tablet (300 mg total) by mouth every morning. 07/04/20 22 Active escitalopram (LEXAPRO) 10 MG tablet Take 1 tablet (10 mg total) by mouth daily. 07/04/20 22 Active BOTOX 200 units injectionIndica tions:Chronic migraine w/o aura w/o status migrainosus, not intractable INJECT 155 UNITS INTRAMUSCULARLY EVERY 12 WEEKS 1 each 3 12/18/19 23 Active Lasmiditan Succinate 50 MG Tab Take 50 mg by mouth daily as needed. Active zonisamide (ZONEGRAN) 100 MG capsule Take 1 capsule (100 mg total) by mouth daily. 04/13/20 23 Active ondansetron (ZOFRAN) 4 MG tabletIndicatio ns:Chronic migraine w/o aura w/o status migrainosus, not intractable Take 1 tablet (4 mg total) by mouth every 8 (eight) hours as needed for Nausea. 20 tablet 5 05/09/20 23 Active oxybutynin XL (DITROPAN-XL) 10 MG 24 hr tablet 07/23/20 23 Active atogepant (QULIPTA) tabletIndicatio ns:Migraine without aura, not intractable, without status migrainosus Take 1 tablet (60 mg total) by mouth daily. 30 tablet 11 09/04/20 24 Active hydrOXYzine (ATARAX) 25 MG tablet Take 1 tablet (25 mg total) by mouth 2 (two) times daily as needed. FOR ANXIETY 01/01/20 25 Active FLUoxetine (PROZAC) 40 MG capsule Take 1 capsule (40 mg total) by mouth every morning. 04/11/20 25 Active Active Problems Problem Noted Date Diagnosed Date High blood pressure 11/27/2024 Migraines 11/27/2024 Cervical dystonia 02/21/2024 Chronic migraine without aur a, intractable, without status migrainosus 03/08/2023 Migraine without aura, not i ntractable, without status migrainosus 01/11/2023 Depression 07/06/2022 Anxiety 07/06/2022 Encounters Date Type Department Care Team Description 05/28/2025 1:20 PM CDT Office Visit [facility] - [address], [address] [place] [phone] Joce Lua MD Botox Procedure (botox migraines 155 units/) 05/28/[address] [facility] Sc[facility] 05/28/2025 Travel 04/23/2025 8:00 AM CDT [facility] [address], [address] [place] [phone] Joce Lua MD Botox Procedure (Botox Cervical Dystonia 100 units and Trigger Point) 04/23/2025 [facility] Scanned, [facility] 04/23/2025 Travel from Last 3 Months Family History Medical History Relation Comments Blood Disease Father Diabetes type II Mother Relation Status Comments Father Alive Mother Alive Social History Tobacco Use Types Packs/Day Years Used Date Smoking Tobacco: Never Smokeless Tobacco: Never Tobacco Cessation:Counseling Given: Yes Alcohol Use Standard Drinks/Week Comments Yes 0 (1 standard drink = 0.6 oz pur e alcohol) socially PHQ-2 Answer Date Recorded Patient Health Questionnaire-2 Score 0 02/26/2025 Comments No Sex and Gender Information Value Date Recorded Sex Assigned at Not on file 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 Gender Identity Not on file Sexual Orientation Not on file Last Filed Vital Signs Vital Sign Reading Time Taken Comments Blood Pressure 144/98 05/28/2025 1:28 PM CDT Pulse 103 05/28/2025 1:28 PM CDT Temperature 36.7 C (98 F) 05/28/2025 1:28 PM CDT Respiratory Rate 14 05/28/2025 1:28 PM CDT Oxygen Saturation 100% 05/28/2025 1:28 PM CDT Inhaled Oxygen Concentration - - Weight 135.2 kg (298 lb) 05/28/2025 1:28 PM CDT Height 165.1 cm (5' 5) 05/28/2025 1:28 PM CDT Body Mass Index 49.59 05/28/2025 1:28 PM CDT Plan of Treatment Upcoming Encounters Date Type Department Care Team (Late st Contact Info) Description 07/23/2025 8:20 AM CDT [facility] - [address], [address] [place] [phone] Joce Lua MD [address] [place] [address] 08/27/2025 1:40 PM CDT [facility] - [address], [address] [place] [phone] Joce Lua MD [address] [place] [address] Health Maintenance Due Date Last Done Comments Cervical Cancer Screening Pa p Smear (Age 30 to 64) Every 3 Years 1986 Annual Physical 1989 Hepatitis C 02/03/2004 DTaP, Tdap and Td Vaccines ( 1 - Tdap) 2005 Hepatitis B Vaccines (1 of 3 - 19+ 3-dose series) 2005 HPV Vaccines (1 - 3-dose SCD M series) 2013 Cervical Cancer Screening Pa p with HPV Testing (Age 30 to 64) Every 5 Years 02/03/2016 Cervical Cancer Screening with HPV 02/03/2016 COVID-19 Vaccine (2023-2 5 season) 2024 PHQ-2 (Physician [place]) Completed 02/26/2025 Meningococcal B Vaccine Aged Out No l onger eligible based on patient's age to complete this topic Meningococcal Vaccine Aged Out No brayden pattie eligible based on patient's age to complete this topic Pneumococcal Vaccine: Pediat rics (0 to 5 Years) and At-Risk Patients (6 to 49 Years) Aged Out No longer eligi ble based on patient's age to complete this topic RSV Immunizations Under 20 Months Aged Out No longer eligible based on patient's age to complete this topic Insurance [facility] Care Teams Director Of In Service Education Relationship Specialty Start Date End Date Tiffanie Rosa PA-C [address] [facility] [place] [address] 

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
--- OUTSIDE RECORDS SUMMARY | 2025-06-08 00:16 | XMS_ITS | Clinical Summary ---
Author Organization [facility] [employer] Address [address] [facility] [place] [address] Care Team Providers Care Junior Accounting Clerk Name Role Phone Merlin Stephens MD Primary Care Provider [phone] [facility],non-owned Affiliates and Associated Physician Practices is amultiple site organization consisting of ambulatory clinics and hospital sitesin [place], [place], [place] and [place]. This disclosure is being madepursuant to the Care Everywhere program and may not contain all information available regarding this patient. Last updated 18.[facility] [employer] Allergies Active Allergy Reactions Criticality Noted Date Comments Morphine Unknown 03/24/2024 Shellfish Allergy Anaphylaxis High 04/04/2024 Medications * Be aware that medications may not be up to date on this document. Alwaysverify current medications with the patient. ALPRAZolam (Xanax) 0.5 MG tablet Take 1 (one) tablet by mouth 2 times daily as needed anxiety 3 Active buPROPion XL 24hr (Wellbutrin-XL ) 300 MG tablet Take 1 (one) tablet by mouth every morning 4 Active escitalopram (Lexapro) 20 MG tablet Take 1 (one) tablet by mouth once daily 4 Active hydroCHLOROthi azide (Hydrodiuril) 25 MG tablet Take 1 (one) tablet by mouth once daily 4 Active oxyBUTYnin CR 24hr (Ditropan-XL) 10 MG tablet Take 1 (one) tablet by mouth once daily Active zonisamide (Zonegran) 100 MG capsule Take 1 (one) capsule by mouth once daily Active docusate sodium (Colace) 100 MG capsule Take 1 (one) capsule by mouth 2 times daily as needed for Constipation 4 Active ondansetron, disintegrating , (Zofran ODT) 4 MG tablet Take 1 (one) tablet by mouth every 8 hours as needed for Nausea/Vomiting Allow tablet to dissolve on the tongue 10 tablet 4 Active acetaminophen (Tylenol) 500 MG tablet Take 1 (one) tablet by mouth 3 times daily Maximum allowable Acetaminophen amount = 4 Grams (4000 mg) / 24 hours. 4 Active HYDROcodone-ac etaminophen ([place]) 5-325 MG tabletIndicati ons:Postoperat jani Pain Take 1 (one) tablet by mouth every 6 hours as needed for Pain (Moderate or Severe pain) Reasons: Pain Following an Operation 28 tablet 4 Active ibuprofen (Motrin) 800 MG tabletIndicati ons:Pain Take 1 (one) tablet by mouth 3 times daily as needed with food for Pain Reasons: Pain 4 Active lidocaine (Xylocaine) 2 % injection Use 2 mL as instructed once 4 Active triamcinolone acetonide (Kenalog-40) injection Inject 1 mL into muscle once 4 Active Social History Tobacco Use Types Packs/Day Years Used Date Smoking Tobacco: Never Smokeless Tobacco: Never Alcohol Use Standard Drinks/Week Comments Yes 1 (1 standard drink = 0.6 oz pur e alcohol) socially AUDIT-C Answer Date Recorded Q1: How often do you have a drink containing alc ohol? 2-4 times a month 04/10/2024 Q2: How many drinks containi ng alcohol do you have on a typical day when you are drinking? 1 or 2 04/10/2024 Q3: How often do you have si x or more drinks on one occasion? 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 Gender Identity Not on file Sexual Orientation Not on file Last Filed Vital Signs Vital Sign Reading Time Taken Comments Blood Pressure 118/92 04/10/2024 12:50 PM CDT Pulse 67 04/10/2024 12:50 PM CDT Temperature 36.3 C (97.3 F) 04/10/2024 11:57 AM CDT Respiratory Rate 10 04/10/2024 12:50 PM CDT Oxygen Saturation 93% 04/10/2024 12:50 PM CDT Inhaled Oxygen Concentration - - Weight 135.2 kg (298 lb) 04/10/2024 8:10 AM CDT Height 165.1 cm (5' 5) 04/04/2024 11:39 AM CDT Body Mass Index 49.59 04/04/2024 11:39 AM CDT Plan of Treatment Health Maintenance Due Date Last Done Comments HIV SCREENING 2001 HEPATITIS C SCREENING 01/29/2004 DTAP/TDAP/TD VACCINES (1 - Tdap) 2005 HEPATITIS B VACCINE (1 of 3 - 19+ 3-dose series) 2005 PAP SMEAR 2007 HPV VACCINE (1 - 3-dose SCDM series) 2013 COVID-19 VACCINE (1 - 2023-2 5 season) 2024 DEPRESSION SCREENING 11/12/2024 03/24/2024 INFLUENZA VACCINE (#1) 2025 ZOSTER VACCINE (1 of 2) 02/03/2036 HIB VACCINE Aged Out No longer eligi ble based on patient's age to complete this topic MENINGOCOCCAL (Group B) VACC INE SHARED DECISION-MAKING Aged Out No longer eligibl e based on patient's age to complete this topic MENINGOCOCCAL GROUPS A/C/Y/W VACCINE Aged Out No longer eligible b ased on patient's age to complete this topic PNEUMOCOCCAL VACCINE Aged Out No long er eligible based on patient's age to complete this topic Insurance [facility] [place] [address] Care Teams Junior Accounting Clerk Relationship Specialty Start Date End Date Merlin Stephens MD [address] [place] [id number] PCP - General Family Medicine 03/24/24
--- OUTSIDE RECORDS SUMMARY | 2025-06-08 00:16 | XMS_ITS | Encounter Summary ---
Author Organization [facility] Address [address] [place] [address] Care Team Providers Care Plant Health Care Technician Name Role Phone Tiffanie Rosa PA-C Primary Care Provider [phone] Encounter Details Date Type Department Care Team ([facility] Contact Info) Description 07/19/2022 [employer] ([employer]) Message Enc [facility] - [address], [address] [place] [address] Mychart, [facility] Provider Botox Appointment Social History Tobacco Use Types Packs/Day Years Used Date Smoking Tobacco: Every Day Cigarettes Smokeless Tobacco: Never Alcohol Use Standard Drinks/Week Comments Yes 0 (1 standard drink = 0.6 oz pur e alcohol) socially PHQ-2 Answer Date Recorded PHQ-2 Score - If the patient scores above 3, please move on to questions 3-9 0 07/06/2022 Comments Unknown Sex and Gender Information Value Date Recorded Sex Assigned at Not on file 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 No / Unsure 07/19/2022 6:44 PM CDT documented as of this encounter Plan of Treatment Upcoming Encounters Date Type Department Care Team ([facility] Contact Info) Description 07/23/2025 8:20 AM CDT Office Visit [facility] - [address], [address] [place] [phone] Joce Lua MD [address] [place] [address] 08/27/2025 1:40 PM CDT Office Visit [facility] Medical [facility] [address] [facility], [address] [place] [address] Joce Lua MD [address] [place] [address] documented as of this encounter Visit Diagnoses Not on filedocumented in this encounter Care Teams Plant Health Care Technician Relationship Specialty Start Date End Date Tiffanie Rosa PA-C [address] [place] [address] 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
[2025-06-08 12:27] VITALS: BP 142/97; PULSE 72; RESP 20; TEMP 36.9; O2SAT 98; BMI 49.8
[2025-06-08 12:34] LABS: BEDSIDEPREGUCG Negative (Negative)
[2025-06-08] MEDS: LACTATED RINGERS 1,000 ML 150 ML IV CONT (12:42)
--- NOTE | 2025-06-08 12:59 | WPDANESEPPF ---
Anes - Initial Pre Proc Eval Procedure: Operation Date: 06/08/25 13:30 Proposed Procedures p Esophagogastroduodenoscopy - Wander Hernandez MD Date/Time: 06/08/25 12:59 Surgeon: Wander Hernandez MD Pre Op Diagnosis: Epigastric pain Patient Data Age: 40 Gender: F Height: 1.65 m Weight: 135.7 kg Last Vital Signs Temp 36.9 C 06/08/25 12:27 Pulse 72 06/08/25 12:27 Resp 20 06/08/25 12:27 BP 142/97 H 06/08/25 12:27 Pulse Ox 98 06/08/25 12:27 O2 Del Method Room Air 06/08/25 12:27 Allergies Allergy/AdvReac Type Severity Reaction Status Date / Time iodine Allergy Unknown Unknown Verified 06/08/25 12:25 morphine AdvReac Unknown Nausea and Verified 06/08/25 12:25 Vomiting shellfish derived AdvReac Unknown Nausea and Verified 06/08/25 12:25 Vomiting Home Medications ?Medication ?Instructions ?Recorded ?Confirmed ?Type bupropion HCl 300 mg 24 hr tablet, 300 mg PO QAM #30 tabs 06/15/24 06/08/25 Rx extended release (Wellbutrin XL) alprazolam 0.5 mg tablet 0.5 mg PO BID PRN anxiety #30 tabs 06/30/24 05/26/25 Rx atogepant 60 mg tablet (Qulipta) 60 mg PO DAILY 09/23/24 06/08/25 History zonisamide 100 mg capsule See Rx Instructions .Route 03/05/25 06/08/25 Rx .COMPLEX #30 caps hydrochlorothiazide 25 mg tablet See Rx Instructions .Route 03/09/25 06/08/25 Rx .COMPLEX #90 tabs fluoxetine 40 mg capsule 40 mg PO DAILY 04/09/25 06/08/25 History Laboratory Tests 06/08/25 12:27 POC Urine HCG, Qual Negative (Negative) Patient hx anesthesia problems: none Family hx anesthesia problems: none Results Review: All pre-operative results and documents have been reviewed as part of the pre-operative evaluation. [facility] Past Medical History Medical History Epigastric pain Sleep apnea, unspecified Bacterial conjunctivitis of right eye Hearing loss in left ear Dysfunction of left eustachian tube Abnormal weight gain Hypertension Test anxiety Migraine BMI greater than 40 Depression Anxiety Abnormal Pap smear of cervix LGSIL PER PT BUT IS UNSURE, 08/20/2017 ascus -hpv BMI 40.0-44.9, adult BMI 39.0-39.9,adult BMI 38.0-38.9,adult BMI 37.0-37.9, adult BMI 36.0-36.9,adult Anxiety disorder, unspecified Dysthymia Irritable bowel syndrome with diarrhea PMDD (premenstrual dysphoric disorder) Sleep apnea Vitamin D deficiency Head ache Surgical History Surgical History History of endometrial ablation 05/23/18 hscope d&c/novasure ablation--menometrorrhagia, dysmenorrhea History of dilation and curettage 05/23/18 hscope d&c/novasure ablation--menometrorrhagia, dysmenorrhea History of tonsillectomy (04/03/18) History of tubal ligation (10/20/14) History of 01/21/13 primary c/s--failure to progress, intolerance to labor 10/20/14 rpt c/s w/tubal ligation History of orthopedic surgery 2001 rt leg 2023 R leg History of nasal surgery Family History Family History Mother Diabetes mellitus Father No problems noted. Sibling Bipolar 1 disorder Grandparent Diabetes mellitus maternal grandmother maternal grandfather Other Hypertension Social History Social History Smoking status: Never smoker Second hand tobacco smoke exposure: Yes Alcohol intake: current Drinks per week: 1 Substance use: never Substance use type: does not use Do You Feel Safe in your Home?: Yes Lack of Transportation: No Lack of Food: Never True Current Housing: I Have Housing Concerned About Future Housing: No Difficulty Paying Gas/Electric Bills: No Difficulty Paying for Meds: No Currently Unemployed: No Education: Bachelor's Degree Difficulty w/ Childcare or Family Care: No Living arrangements: with family Additional living arrangements comments: Occupation/Education: occupation 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[employer] Gender identity (if verbalized by the patient): Female Sexual Orientation (if Verbalized by the Patient): Straight or Heterosexual Spiritual care concerns: No Anes - Eval Final PreProcedure Day of Procedure 06/08/25 12:59 Patient weight: morbidly obese Heart: regular rate and rhythm Lungs: clear to auscultation Airway: Mallampati scale class II Neurological: alert and oriented Last oral intake: >/= 8 hours ASA classification: III Emergent: no Anesthetic plan: proceed Anesthesia type and monitoring: general GIVS and standard monitoring Results Review: All pre-operative results and documents have been reviewed as part of the pre-operative evaluation. Informed Consent: The patient's anesthetic plan and its attendant risks and benefits were discussed with the patient/family/POA. Questions were solicited and answers provided to the satisfaction of the patient/family/POA.
--- NOTE | 2025-06-08 13:28 | P.HP_ITS ---
History of Present Illness History of Present Illness Consent: Risks, benefits, and alternatives have been discussed and questions answered. Patient agrees to proceed with procedure. Chief complaint: Epigastric pain Narrative: Liliana Doshi is a 40 year old female here for first egd because intermittent abdominal pain, she had ultrasound Review of Systems Review of Systems: All systems reviewed & are unremarkable except as noted in HPI and below PMFSH Past Medical History Medical History Epigastric pain Sleep apnea, unspecified Bacterial conjunctivitis of right eye Hearing loss in left ear Dysfunction of left eustachian tube Abnormal weight gain Hypertension Test anxiety Migraine BMI greater than 40 Depression Anxiety Abnormal Pap smear of cervix LGSIL PER PT BUT IS UNSURE, 08/20/2017 ascus -hpv BMI 40.0-44.9, adult BMI 39.0-39.9,adult BMI 38.0-38.9,adult BMI 37.0-37.9, adult BMI 36.0-36.9,adult Anxiety disorder, unspecified Dysthymia Irritable bowel syndrome with diarrhea PMDD (premenstrual dysphoric disorder) Sleep apnea Vitamin D deficiency Head ache Surgical History Surgical History History of endometrial ablation 05/23/18 hscope d&c/novasure ablation--menometrorrhagia, dysmenorrhea History of dilation and curettage 05/23/18 hscope d&c/novasure ablation--menometrorrhagia, dysmenorrhea History of tonsillectomy (04/03/18) History of tubal ligation (10/20/14) History of 01/21/13 primary c/s--failure to progress, intolerance to labor 10/20/14 rpt c/s w/tubal ligation History of orthopedic surgery 2001 rt leg 2023 R leg History of nasal surgery Family History Family History Mother Diabetes mellitus Father No problems noted. Sibling Bipolar 1 disorder Grandparent Diabetes mellitus maternal grandmother maternal grandfather Other Hypertension Social History Social History Smoking status: Never smoker Second hand tobacco smoke exposure: Yes Alcohol intake: current Drinks per week: 1 Substance use: never Substance use type: does not use Do You Feel Safe in your Home?: Yes Lack of Transportation: No Lack of Food: Never True Current Housing: I Have Housing Concerned About Future Housing: No Difficulty Paying Gas/Electric Bills: No Difficulty Paying for Meds: No Currently Unemployed: No Education: Bachelor's Degree Difficulty w/ Childcare or Family Care: No Living arrangements: with family Additional living arrangements comments: Occupation/Education: occupation 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[employer] Gender identity (if verbalized by the patient): Female Sexual Orientation (if Verbalized by the Patient): Straight or Heterosexual Spiritual care concerns: No Meds Home Medications and Allergies Home Medications ?Medication ?Instructions ?Recorded ?Confirmed ?Type bupropion HCl 300 mg 24 hr tablet, 300 mg PO QAM #30 tabs 06/15/24 06/08/25 Rx extended release (Wellbutrin XL) alprazolam 0.5 mg tablet 0.5 mg PO BID PRN anxiety #30 tabs 06/30/24 05/26/25 Rx atogepant 60 mg tablet (Qulipta) 60 mg PO DAILY 09/23/24 06/08/25 History zonisamide 100 mg capsule See Rx Instructions .Route 03/05/25 06/08/25 Rx .COMPLEX #30 caps hydrochlorothiazide 25 mg tablet See Rx Instructions .Route 03/09/25 06/08/25 Rx .COMPLEX #90 tabs fluoxetine 40 mg capsule 40 mg PO DAILY 04/09/25 06/08/25 History Allergies Allergy/AdvReac Type Severity Reaction Status Date / Time iodine Allergy Unknown Unknown Verified 06/08/25 12:25 morphine AdvReac Unknown Nausea and Verified 06/08/25 12:25 Vomiting shellfish derived AdvReac Unknown Nausea and Verified 06/08/25 12:25 Vomiting Vital Signs Vital Signs - 24 hr 06/08/25 12:27 Temperature 98.4 F Pulse Rate 72 Respiratory Rate 20 Blood Pressure 142/97 H Pulse Oximetry 98 Oxygen Delivery Room Air Exam Const: General: comfortable and no acute distress HENMT: Face/Nose/Sinus: Normal nares present Eyes: General: appearance normal, both eyes and all related structures Neck: Neck: no JVD Resp: Auscultation: clear to auscultation bilaterally Cardio: Rate: regular rate Rhythm: regular rhythm GI: Inspection: non-distended GI Palp: Yes Soft to palpation Skin: General skin exam: normal color Neuro: Speech: normal speech Extrem: General: normal to inspection Psych: Mental Status: mental status grossly normal Assessment and Plan Assessment and plan (1) Epigastric pain: Code(s): R10.13 - Epigastric pain Status: Acute Assessment and Plan: egd with bx
[2025-06-08] MEDS: BENZOCAINE (*SP) 60 ML SPRAY CAN (HURRICAINE) 1 SPRAY MUCOUS MEM (13:31)
--- NOTE | 2025-06-08 13:36 | S_PTH ---
PATIENT: Liliana Doshi LOC: [facility]#:[id number] AGE/SX: 40/F ROOM: RE06/08/[address]: Wander Hernandez MD : 1985 BED: DIS: 06/08/2025 SPEC #: [id number] RECD: 06/08/25 13:51 STATUS: ANDREW REQ #: [id number] GAMALIEL: 06/08/25 13:[address]: Wander Hernandez DEPT: [facility] Surgical RECD BY: Nicolle Sheikh ENTERED: 06/08/25 13:52 SP TYPE: Surgical OTHR DR: Merlin Stephens MD Tissues: A - Gastric Biopsy B - Small Bowel Bx Procedures: Hematoxylin and Eosin Stain Gross and Microscopic Level 4
[2025-06-08 13:38] VITALS: BP 155/101; PULSE 84; RESP 21; O2SAT 97
[2025-06-08 13:48] VITALS: BP 147/98; PULSE 74; RESP 17; O2SAT 99
[2025-06-08 13:58] VITALS: BP 159/100; PULSE 65; RESP 17; O2SAT 100
--- NOTE | 2025-06-08 13:59 | SUR.PHASEII ---
Patient states she does not feel well enough to get up and walk. States she is too groggy. Will continue to monitor vital signs at this time.
--- NOTE | 2025-06-08 14:06 | SUR.PHASEII ---
Patient states she feels ok to get dressed at this time.
== END 2025-06-08 14:18 | disposition home or self-care (01) ==
PROVIDERS: Anesthesiology; PCP Family Medicine; Referring Provider Nurse Practitioner Family; Visit Provider Internal Medicine Gastroenterology
PROC: 0DJ08ZZ Inspection of Upper Intestinal Tract, Via Natural or Artificial Opening Endoscopic (ICD-10-PCS; CPT 43239; principal; 2025-06-08 13:30)
DX: K29.50 Unspecified chronic gastritis without bleeding (principal); I10 Essential (primary) hypertension; E55.9 Vitamin D deficiency, unspecified; K58.0 Irritable bowel syndrome with diarrhea; G47.30 Sleep apnea, unspecified; F41.8 Other specified anxiety disorders; F32.A Depression, unspecified; F34.1 Dysthymic disorder; F32.81 Premenstrual dysphoric disorder; E66.01 Morbid (severe) obesity due to excess calories; Z68.42 Body mass index [BMI] 45.0-49.9, adult; Z98.890 Other specified postprocedural states; Z98.891 History of uterine scar from previous surgery; Z98.51 Tubal ligation status
CPT/HCPCS: 43239; 88305; J1596; J2003; J2704; J7120